=== PATIENT | male | born 1985 | race Caucasian/White ===

== ENCOUNTER 2020-05-25 18:01 | Emergency (ER) | payer OTHER ==
[~2020-05-25] VITALS: Ht 177.8 cm; Wt 104.3 kg
[2020-05-25] MEDS ORDERED: LEVO-T50 MCG PO (18:43)
[2020-05-25 19:06] LABS: HEMATOCRIT 39.1 % (42.0-52.0); HEMOGLOBIN 13.7 gm/dL (14.0-18.0); MCH 29.5 pg (26.0-34.0); MCHC 34.9 g/dL (28.0-37.0); MCV 84.3 fL (80.0-100.0); PLATELET COUNT 137 thou/uL (150-400); RBC 4.64 mil/uL (4.50-6.00); RDW 12.4 % (10.5-14.5); WBC 3.9 thou/uL (4.0-11.0)
[2020-05-25 19:08] LABS: POTASSIUM 3.6 mmol/L (3.5-5.1)
[2020-05-25 19:33] LABS: ABSOLUTE NEUTROPHILS 2.4 thou/uL (1.4-8.2); ATYPICAL LYMPHS 4 %
[2020-05-25 19:48] VITALS: BP 128/75
== END 2020-05-25 19:55 | disposition home or self-care (01) ==
LOC: ER 18:01
PROVIDERS: Emergency Medicine
DX: B34.9 Viral infection, unspecified (principal); E03.9 Hypothyroidism, unspecified; Z20.828 Contact with and (suspected) exposure to other viral communicable diseases; Z79.899 Other long term (current) drug therapy